=== PATIENT | female | born 2000 | race Caucasian/White ===

== ENCOUNTER 2021-07-30 08:39 | Emergency (ER) | payer OTHER ==
[~2021-07-30] VITALS: Ht 167.6 cm; Wt 74.8 kg
--- NOTE | 2021-07-30 08:42 | NUR ---
Pt CARLOS GRANDA, to bed 06.
[2021-07-30 08:51] VITALS: BP 137/85
[2021-07-30] MEDS ORDERED: ONDANSETRON 4 MG ODT PO ONE (09:00)
[2021-07-30] MEDS ORDERED: FAMOTIDINE 20 MG TAB PO ONE (09:00)
--- NOTE | 2021-07-30 09:01 | NUR ---
pt wheelchair assisted to bathroom at this time
--- NOTE | 2021-07-30 09:20 | NUR ---
la and benjamin swabbed and sent to lab at this time
--- NOTE | 2021-07-30 09:20 | NUR ---
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 pt states she drank 1 bottle of wine this morning. in visible distress, pt denies any SI, harm to self or other at this time. is requesting some mental help. skin is pink/warm/dry. a&o x4, slurred speech with unsteady steady gait. lungs clear bl, heart rate even and regular. pt denies any fever, cp, sob, or cough at this time. pt states pain is 5/10 at this time, abd discomfort. vss. patient positioned for comfort. hob elevated. bed down. ermd made aware of pt. pmh: bipolar, depression, anxiety nka
--- NOTE | 2021-07-30 09:56 | NUR ---
Mo ventura in ED - 07/30/21 at 1006 by [facility] PT RE TELEPSYCHED. WILL CONTINUE PT RX OF SANDEEPREXA AND PLAN ON MOVING PT TO PSYCHIATRIC UNIT.
--- NOTE | 2021-07-30 10:04 | NUR ---
Blood for labwork drawn from adriana nunez. Patient tolerated.
[2021-07-30 10:29] LABS: BASOPHILS % (AUTO) 0.7 % (0.0-2.0); EOSINOPHILS # (AUTO) 0.1 K/uL (0-0.4); EOSINOPHILS % (AUTO) 1.5 % (0.0-4.0); HEMATOCRIT 39.6 % (36-48); HEMOGLOBIN 13.4 g/dL (12.0-16.0); LYMPHOCYTES # (AUTO) 1.4 K/uL (2.5-16.5); LYMPHOCYTES % (AUTO) 28.3 % (20.5-51.1); MEAN CORPUSCULAR HEMOGLOBIN 30 pg (27-31); MEAN CORPUSCULAR HGB CONC 34 g/dL (33-37); MEAN CORPUSCULAR VOLUME 87.7 fL (80-94); MONOCYTES # (AUTO) 0.3 K/uL (0.8-1.0); MONOCYTES % (AUTO) 6.3 % (1.7-9.3); NEUTROPHILS # (AUTO) 3.2 K/uL (1.8-7.7); NEUTROPHILS % (AUTO) 63.2 % (42.2-75.2); PLATELET COUNT (AUTO) 212 K/uL (140-450); RED BLOOD CELL COUNT(AUTO) 4.52 MIL/uL (4.20-5.40); RED CELL DISTRIBUTION WIDTH 13.2 % (11.6-13.7); WHITE BLOOD COUNT (AUTO) 5.1 K/uL (4.8-10.8)
--- NOTE | 2021-07-30 10:40 | NUR ---
pt requesting no visitors at this time. nurse discharge jen made aware.
[2021-07-30 10:43] LABS: ALBUMIN 3.9 g/dL (3.4-5.0); ANION GAP 15.1 (8-16); ASPARTATE AMINOTRANSFERASE 19 U/L (15-37); CARBON DIOXIDE 26.4 mmol/L (21-32); CHLORIDE 103 mmol/L (98-107); CREATININE 0.7 mg/dL (0.6-1.3); GFR ARICAN-AMERICAN 135 mL/min (>90); GLUCOSE 98 mg/dL (74-106); POTASSIUM 3.5 mmol/L (3.5-5.1); SODIUM SERUM 141 mmol/L (136-145); TOTAL BILIRUBIN 0.2 mg/dL (0.0-1.0); UREA NITROGEN, BLOOD 6 mg/dL (7-18)
[2021-07-30 10:45] LABS: SALICYLATE < 2.8 mg/dL (2.8-20.0)
[2021-07-30 11:07] LABS: APPEARANCE,URINE CLEAR (CLEAR); BILIRUBIN,URINE NEGATIVE (NEGATIVE); BLOOD, URINE NEGATIVE (NEGATIVE); COLOR,URINE YELLOW (YELLOW); LEUKOCYTE ESTERASE ,URINE NEGATIVE (NEGATIVE); NITRITE, URINE NEGATIVE (NEGATIVE); PH,URINE 6.5 (5.0-9.0); UGLUCOSE NEGATIVE (NEGATIVE)
[2021-07-30] MEDS ORDERED: ACETAMINOPHEN EXTRA STRENGTH 500 MG TAB PO ONE ×2 (11:15→20:05)
[2021-07-30 11:23] LABS: BARBITURATE, URINE NEGATIVE ng/ml (NEG <=200); BENZODIAZEPINE, URINE NEGATIVE ng/mL (NEG <=200); CANNABINOID, URINE NEGATIVE ng/mL (NEG <=50); COCAINE, URINE NEGATIVE ng/mL (NEG <=300)
[2021-07-30 11:24] LABS: OPIATE, URINE NEGATIVE ng/mL (NEG <=2000); PHENCYCLIDINE SCREEN,URINE NEGATIVE ng/mL (NEG <=25)
--- NOTE | 2021-07-30 12:10 | NUR ---
pt medically cleared by md pelaez
--- NOTE | 2021-07-30 12:12 | NUR ---
Patient appears to be resting comfortably in bed. Vital Signs within normal limits. Respirations even and unlabored.
--- NOTE | 2021-07-30 12:59 | NUR ---
PT IS SLEEPING
--- NOTE | 2021-07-30 14:35 | NUR ---
telepsych consult for pt at bedside
--- NOTE | 2021-07-30 15:16 | NUR ---
federicoair pd at bedside for 5150 hold.
--- NOTE | 2021-07-30 15:53 | NUR ---
belongings taken to security, list done
--- NOTE | 2021-07-30 16:41 | NUR ---
Patient appears to be resting comfortably in bed. Vital Signs within normal limits. Respirations even and unlabored.
--- NOTE | 2021-07-30 19:28 | NUR ---
GAVE REPORT TO MADI MCCLELLAN. TRANSFER OF CARE
--- NOTE | 2021-07-30 19:53 | NUR ---
PATIENT AWAKE AND EATING AT THIS TIME. ALL NEEDS MET AT THIS TIME.
--- NOTE | 2021-07-30 20:00 | NUR ---
PATIENT ON THE PHONE SPEAKING TO SISTER CATRACHITO
--- NOTE | 2021-07-30 21:48 | NUR ---
VSS, PATIENT RESTING AT THIS TIME. ALL NEEDS MET
--- NOTE | 2021-07-30 22:05 | NUR ---
SPOKE TO RASHAWN BARNETT AT [facility] TO GIVE REPORT ON PATIENT.
--- NOTE | 2021-07-30 23:04 | NUR ---
PATIENT IN BED RESTING AT THIS TIME. BED IN LOWEST POSITION AND LOCKED AT THIS TIME. ALL NEEDS MET.
--- NOTE | 2021-07-30 23:31 | NUR ---
PATIENT AMBULATED TO THE AND BACK TO BED 6
--- NOTE | 2021-07-30 23:48 | NUR ---
SPOKE TO PATIENTS SISTER CATRACHITO, AWARE OF TRANSFER
--- NOTE | 2021-07-31 00:15 | NUR ---
Patient to be transferred to [facility]. Is being transferred due to Higher level of care. Receiving facility has accepting physician and available space. ER physician has signed transfer form. Patient or responsible libertarian has agreed to transfer and signed form. Patient belongings inventoried and will be sent with patient. Copy of nursing notes, lab reports, EKG, Physicians Orders and X-rays to be sent with patient. Report called to RASHAWN Krishnamurthy at receiving facility. [facility] ambulance service has been called for transfer.
--- NOTE | 2021-07-31 00:15 | NUR ---
Chart checked and completed. The patient's care was reviewed and supervised by Soo Booth RN.
--- NOTE | 2021-07-31 00:15 | NUR ---
PATIENT VSS, AMBULATORY, A/O X4. GAVE REPORT TO [facility] FOR TRANSFER AT THIS TIME.
[2021-07-31 00:19] VITALS: BP 138/74
== END 2021-07-31 00:15 ==
LOC: MED 08:39
DX: R45.851 Suicidal ideations (principal); Z20.822 Contact with and (suspected) exposure to COVID-19; F32.9 Major depressive disorder, single episode, unspecified; R10.13 Epigastric pain; R10.30 Lower abdominal pain, unspecified; R51.9 Headache, unspecified; F41.9 Anxiety disorder, unspecified
CPT/HCPCS: 36415; 80053; 80305; 81003; 81025; 85025; 87426; 87635; 99285; G0480; G0482; Q0162